=== PATIENT | male | born 1990 | race Hispanic/Latino ===

== ENCOUNTER 2019-09-29 11:33 | Emergency (ER) | payer BC ==
--- NOTE | 2019-09-29 12:42 | RAD REPORT ---
EXAM DESCRIPTION: RAD - Hand Left 3 View - 09/29/2019 12:12 pm CLINICAL HISTORY: PAIN COMPARISON: None. FINDINGS: No fracture, dislocation or periosteal reaction noted. No acute bone or joint finding iden tified. There is no air or foreign body in the soft tissues. Soft tissues in the thenar region are pr ominent. This could be hematoma or muscle injury given the mechanism of injury. IMPRESSION: No fracture or other bone abnormality. Prominent thenar soft tissues possibly from hematoma or muscle injury.
--- NOTE | 2019-09-29 13:19 | EDPHYS ---
Physician Documentation [facility] Name: Izaiah Harkins Age: 28 yrs Sex: Male : 1990 Arrival Date: 09/29/2019 Time: 11:38 Bed 18 Private MD: ED Physician Kareem Nava HPI: 09/28 13:44 This 28 yrs old Male presents to ER via Ambulatory with complaints of Hand kb Injury. 13:44 The patient or guardian reports decreased range of motion, injury, pain, swelling, kb tenderness. The complaints affect the left hand diffusely. Context: The problem was sustained outdoors, resulted from glove got stuck on fence and when he went to walk away it pulled his hand in an abnormal position. . Onset: The symptoms/episode began/occurred 1 week(s) ago. Modifying factors: The symptoms are alleviated by nothing, the symptoms are aggravated by movement. Associated signs and symptoms: The patient has no apparent associated signs or symptoms. Severity of symptoms: At their worst the symptoms were moderate, in the emergency department the symptoms are unchanged. The patient has not experienced similar symptoms in the past. The patient has not recently seen a physician. Historical: - Allergies: 11:49 No Known Allergies; hb - Home Meds: 11:49 None [Active]; hb - PMHx: 11:49 None; hb - PSHx: 11:49 Ankle - Left; hb - Immunization history:: Adult Immunizations up to date. - Social history:: Smoking status: Patient denies any tobacco usage or history of. ROS: 13:43 Constitutional: Negative for fever, chills, and weight loss, Cardiovascular: Negative kb for chest pain, palpitations, and edema, Respiratory: Negative for shortness of breath, cough, wheezing, and pleuritic chest pain, Abdomen/GI: Negative for abdominal pain, nausea, vomiting, diarrhea, and constipation, Back: Negative for injury and pain, Skin: Negative for injury, rash, and discoloration, Neuro: Negative for headache, weakness, numbness, tingling, and seizure. 13:43 MS/extremity: Positive for decreased range of motion, pain, swelling, tenderness, of the left hand. Exam: 13:43 Constitutional: This is a well developed, well nourished patient who is awake, alert, kb and in no acute distress. Head/Face: Normocephalic, atraumatic. Chest/axilla: Normal chest wall appearance and motion. Nontender with no deformity. No lesions are appreciated. Cardiovascular: Regular rate and rhythm with a normal S1 and S2. No gallops, murmurs, or rubs. Normal PMI, no JVD. No pulse deficits. Respiratory: Lungs have equal breath sounds bilaterally, clear to auscultation and percussion. No rales, rhonchi or wheezes noted. No increased work of breathing, no retractions or nasal flaring. Abdomen/GI: Soft, non-tender, with normal bowel sounds. No distension or tympany. No guarding or rebound. No evidence of tenderness throughout. Skin: Warm, dry with normal turgor. Normal color with no rashes, no lesions, and no evidence of cellulitis. Neuro: Awake and alert, GCS 15, oriented to person, place, time, and situation. Cranial nerves II-XII grossly intact. Motor strength 5/5 in all extremities. Sensory grossly intact. Cerebellar exam normal. Normal gait. 13:43 Musculoskeletal/extremity: Extremities: grossly normal except: noted in the dorsum of left hand: decreased ROM, pain, swelling, tenderness, ROM: limited active range of motion, in the left little finger, Circulation is intact in all extremities. Sensation intact. Vital Signs: 11:47 BP 149 / 93; Pulse 73; Resp 16; Temp 97.8; Pulse Ox 98% on R/A; Weight 133.81 kg; hb Height 5 ft. 8 in. (172.72 cm); Pain 10/10; 11:47 Body Mass Index 44.85 (133.81 kg, 172.72 cm) hb MDM: 11:50 Patient medically screened. kb 12:56 Data reviewed: vital signs, nurses notes. Data interpreted: Pulse oximetry: on room air kb is 98 %. Interpretation: normal. Counseling: I had a detailed discussion with the patient and/or guardian regarding: the historical points, exam findings, and any diagnostic results supporting the discharge/admit diagnosis, radiology results, the need for outpatient follow up, a orthopedic surgeon, to return to the emergency department if symptoms worsen or persist or if there are any questions or concerns that arise at home. 09/28 11:54 Order name: Hand Left 3 View XRAY; Complete Time: 12:54 kb 09/28 13:30 Order name: Jorge Wrap; Complete Time: 13:35 kb Administered Medications: 13:35 Drug: TORadol 30 mg Route: IM; Site: Ventrogluteal LEFT; ah 13:52 Follow up: Response: No adverse reaction Disposition: 14:58 Co-signature as Attending Physician, Kareem Nava MD I agree with the assessment and kdr plan of care. Disposition: 09/29/19 13:18 Discharged to Home. Impression: Pain in left hand. - Condition is Stable. - Discharge Instructions: Musculoskeletal Pain, Cryotherapy, [id number], Heat Therapy, [id number]. - Prescriptions for Diclofenac Sodium 75 mg Oral Tablet, Delayed Release (E.C.) - take 1 tablet by ORAL route 2 times per day As needed; 30 tablet. - Medication Reconciliation Form, Thank You Letter, Antibiotic Education, Prescription Opioid Use, Work release form form. - Follow up: Emergency Department; When: As needed; Reason: Worsening of condition. Follow up: Private Physician; When: 2 - 3 days; Reason: Recheck today's complaints, Continuance of care, Re-evaluation by your physician. Signatures: Dispatcher [employer] EDMS Kayla Rivera, RUNNER OUT-C RUNNER OUT-Kareem Hernandez MD MD [facility] Ballard, JANUSZ BOUDREAUX Mony Britton RN RN Corrections: (The following items were deleted from the chart) 13:50 13:18 09/29/2019 13:18 Discharged to Home. Impression: Pain in left hand. Condition is ah Stable. Forms are Medication Reconciliation Form, Thank You Letter, Antibiotic Education, Prescription Opioid Use. Follow up: Emergency Department; When: As needed; Reason: Worsening of condition. Follow up: Private Physician; When: 2 - 3 days; Reason: Recheck today's complaints, Continuance of care, Re-evaluation by your physician. kb
--- NOTE | 2019-09-29 13:19 | ER ---
Nurse's Notes [facility] Name: Izaiah Harkins Age: 28 yrs Sex: Male : 1990 Arrival Date: 09/29/2019 Time: 11:38 Bed 18 Private MD: Diagnosis: Pain in left hand Presentation: 09/28 11:47 Chief complaint: Hand got caught while climbing fence last week, reports worsening left hb hand pain 10/10. Coronavirus screen: Proceed with normal triage. Ebola Screen: No symptoms or risks identified at this time. Initial Sepsis Screen: Does the patient meet any 2 criteria? No. Patient's initial sepsis screen is negative. Does the patient have a suspected source of infection? No. Patient's initial sepsis screen is negative. Risk Assessment: Do you want to hurt yourself or someone else? Patient reports no desire to harm self or others. Onset of symptoms was September 22, 2019. 11:47 Method Of Arrival: Ambulatory hb 11:47 Acuity: JAIME 4 hb Triage Assessment: 12:16 Injury Description: Pt thinks he got his hand caught in fence and maybe it twisted. Historical: - Allergies: 11:49 No Known Allergies; hb - Home Meds: 11:49 None [Active]; hb - PMHx: 11:49 None; hb - PSHx: 11:49 Ankle - Left; hb - Immunization history:: Adult Immunizations up to date. - Social history:: Smoking status: Patient denies any tobacco usage or history of. Screenin:15 Abuse screen: Denies threats or abuse. Nutritional screening: No deficits noted. Tuberculosis screening: No symptoms or risk factors identified. Fall Risk None identified. Assessment: 12:12 General: Appears in no apparent distress. Behavior is calm, cooperative, appropriate for age. Pain: Complains of pain in palm of left hand Pain at worst was 10 out of 10 on a pain scale. Pain began last week. Neuro: Level of Consciousness is awake, alert, Oriented to person, place, time, situation. Cardiovascular: Capillary refill < 3 seconds Patient's skin is warm and dry. Pulses are palpable in right radial artery and left radial artery. Respiratory: Airway is patent Respiratory effort is even, unlabored. Derm: Skin is intact, is healthy with good turgor. Musculoskeletal: Circulation, motion, and sensation intact. Capillary refill < 3 seconds, Range of motion: limited in PIP of left ring finger and MCP of left ring finger Swelling present in palmar aspect of proximal phalanx of left ring finger. 12:34 Reassessment: Awaiting on radiology results. 13:52 Reassessment: No adverse reaction noted to medications. Vital Signs: 11:47 BP 149 / 93; Pulse 73; Resp 16; Temp 97.8; Pulse Ox 98% on R/A; Weight 133.81 kg; hb Height 5 ft. 8 in. (172.72 cm); Pain 10/10; 11:47 Body Mass Index 44.85 (133.81 kg, 172.72 cm) hb ED Course: 11:38 Patient arrived in ED. [facility] 11:38 Kayla Rivera [facility]-C [facility]. 11:38 Kareem Nava MD is Attending Physician. kb 11:49 Triage completed. 11:49 Arm band placed on. 12:07 X-ray(s) taken. 12:08 Mony Britton, RN is Primary Nurse. 12:12 Hand Left 3 View XRAY In Process Unspecified. EDMS 12:15 Patient has correct armband on for positive identification. Call light in reach. 13:44 No provider procedures requiring assistance completed. Patient did not have IV access during this emergency room visit. Administered Medications: 13:35 Drug: TORadol 30 mg Route: IM; Site: Ventrogluteal LEFT; 13:52 Follow up: Response: No adverse reaction Outcome: 13:18 Discharge ordered by . kb 13:43 Discharged to home ambulatory. 13:43 Condition: good 13:43 Discharge instructions given to patient, Instructed on discharge instructions, follow up and referral plans. medication usage, Demonstrated understanding of instructions, follow-up care, medications, Prescriptions given X 1. 13:50 Patient left the ED. Signatures: Dispatcher [employer] EDMA Kayla Rivera FNP-C FNP-Ckb Verde, Stephanie, RN RN [facility] Ballard RN RN hb James, Frank fj Mony Britton, RN RN
[2019-09-29] MEDS ORDERED: KETOROLAC 30 MG/ML INJ ONE (13:39)
[2019-09-29 13:56] VITALS: BP 149/93; TEMP 97.8; O2SAT 98
== END 2019-09-29 13:50 | disposition home or self-care (01) ==
LOC: ER 11:33
DX: M79.642 Pain in left hand (principal); X50.1XXA Overexertion from prolonged static or awkward postures, initial encounter; Y93.89 Activity, other specified; Y92.9 Unspecified place or not applicable
CPT/HCPCS: 96372; 99283